=== PATIENT | male | born 1995 ===

== ENCOUNTER 2021-08-12 07:37 | Emergency (ER) | payer SELFPAY ==
[2021-08-12 07:56] VITALS: BP 129/86; PULSE 88
--- NOTE | 2021-08-12 08:09 | EDM.PDOC ---
ED HPI GENERAL MEDICAL PROBLEM - General Chief Complaint: Eye Problems Stated Complaint: EYE COMPLAINT Time Seen by Provider: 08/12/21 07:59 - History of Present Illness INITIAL COMMENTS - FREE TEXT/NARRATIVE: 25-year-old male presents the emergency see room with vision loss and pain in the left eye. This started 2 days ago progressively getting worse. Patient denies any trauma. 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 But he absolutely denies any trauma or the sensation of a foreign body in his eye. Patient has had this in the past and it got better on its own within about a week. Patient has had problems with kidney stones in the past currently this is not an issue for him. He is not taking any routine medications. - Related Data Allergies Allergy/AdvReac Type Severity Reaction Status Date / Time antibiotic Allergy Rash Uncoded 08/12/21 08:08 Home Meds: Home Meds Hydrocodone/Acetaminophen [HYDROcodone-Acetaminophen 5-325 MG] 1 - 2 each PO Q6H #10 tab 08/12/21 [Rx] Past Medical History - Past Health History Medical/Surgical History: Denies Medical/Surgical History ED ROS GENERAL - Review of Systems Review Of Systems: See Below Constitutional: Reports: No Symptoms HEENT: Reports: Rhinitis Respiratory: Reports: No Symptoms Cardiovascular: Reports: No Symptoms GI/Abdominal: Reports: No Symptoms ED EXAM GENERAL W FULL EYE - Physical Exam Exam: See Below Exam Limited By: No Limitations General Appearance: Alert, No Apparent Distress Eye Exam: Left Eye: Bleeding (He has a spontaneous hyphema ), Bilateral Eye: EOMI Visual Acuity (R) 20/: 20 Visual Acuity (L) 20/: 0 With Correction: No Eyelids: Right: Normal Appearance, Left: Erythema Cornea Exam: Left: Other (He appears to have a hyphema) Extraocular Movements: Bilateral: Intact Anterior Chamber: Left: Hyphema Respiratory/Chest: No Respiratory Distress, Lungs Clear, Normal Breath Sounds Cardiovascular: Regular Rate, Rhythm, No Edema, No Murmur Course - Vital Signs Last Recorded V/S: Last Vital Signs Temp 36.9 C 08/12/21 07:49 Pulse 88 08/12/21 07:49 Resp 16 08/12/21 07:49 BP 129/86 08/12/21 07:49 Pulse Ox 99 08/12/21 07:49 - Re-Assessments/Exams Free Text/Narrative Re-Assessment/Exam: 08/12/21 08:[address] 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 The patient will follow up in his office at the [facility] with Dr. Jensen at 2:00 Central time. I did put a patch over the patient's eye. Patient's tetanus is updated. Departure - Departure Time of Disposition: 08:59 Disposition: Home, Self-Care 01 Clinical Impression: Hyphema, left eye - Discharge Information Referrals: PCP,None [Primary Care Provider] - Additional Instructions: Return to the emergency room with any questions problems or worsening symptoms. Follow-up at the [facility] in [place] with Dr. Jensen be there no later than 2 PM central time today. [address] [place] [address], [place] [phone] Jensen I have given you a prescription for some pain medication take 1 or 2 every 6 hours as needed this was sent electronically to the [facility] pharmacy on [address]. Sepsis Event Note (ED) - Evaluation Sepsis Screening Result: No Definite Risk - Focused Exam Vital Signs: Vital Signs Temp Pulse Resp BP Pulse Ox 08/12/21 07:49 36.9 C 88 16 129/86 99
[2021-08-12] MEDS ORDERED: Diphtheria,Pertussis(Acell),Tetanus Vaccine 0.5 ML Syringe IM ONE (08:47)
[2021-08-12] MEDS ORDERED: Acetaminophen/HYDROcodone 325-5 MG Tab PO ONE (09:05)
== END 2021-08-12 09:15 | disposition home or self-care (01) ==
LOC: JD.ED 07:37
DX: H21.02 Hyphema, left eye (principal); Z88.1 Allergy status to other antibiotic agents; Z23 Encounter for immunization
CPT/HCPCS: 90471; 90715; 99283; A9270